=== PATIENT | female | born 1985 | race Caucasian/White ===

== ENCOUNTER → 2016-10-16 | Outpatient (CLI) | payer OTHER ==
[~2016-10-16] MED LIST: BCPILLS PO; MELA1TAB9 PO; SERT25TA PO
[2016-10-20 03:05] LABS: CHLAMYDIA TRACH RNA*** NOT DETECTED (NOT DETECTED); GC (NEIS GONORRHOEAE)RNA** NOT DETECTED (NOT DETECTED)
== END | disposition home or self-care (01) ==
LOC: C.LABSPEC 12:00
PROVIDERS: ATTEND Obstetrics & Gynecology
DX: L29.8 Other pruritus (principal); N89.8 Other specified noninflammatory disorders of vagina

== ENCOUNTER → 2017-02-26 | Outpatient (CLI) | payer OTHER ==
[2017-02-26 13:15] LABS: BASO % 0.1 %; BASO ABS # 0.01 K/uL (0-0.2); COMPLETE YES; EOS % 0.5 %; HEMATOCRIT 42.1 % (37-47); IG% 0.4 %; LYMPH % 28.5 %; MEAN CELL VOLUME 86.6 fL (80-100); MEAN CORPUSCULAR HGB CONC 34.7 g/dl (32-36); MEAN PLATELET VOLUME 10.8 fL (7.4-10.4); MONO % 4.9 %; NEUT % 65.6 %; PLATELET COUNT 213 K/uL (130-400); RED BLOOD COUNT 4.86 M/uL (4.2-5.4); WHITE BLOOD COUNT 14.38 K/uL (4.8-10.8)
[2017-02-26 13:34] LABS: ALT/SGPT 15 U/L (12-78); AST/SGOT 11 U/L (15-37); BLOOD UREA NITROGEN 20 mg/dl (7-18); BUN/CREATININE RATIO 24.2 (10-20); CALCIUM 8.5 mg/dl (8.5-10.1); CARBON DIOXIDE 24 mmol/L (21-32); CHLORIDE 108 mmol/L (98-107); CREATININE 0.81 mg/dl (0.60-1.20); GLUCOSE 108 mg/dl (70-99); POTASSIUM 3.5 mmol/L (3.5-5.1); SODIUM 140 mmol/L (136-145)
[2017-02-26 13:45] LABS: ALKALINE PHOSPHATASE 106 U/L (45-117); THYROID STIMULATING HORMONE 0.619 uIu/ml (0.300-4.500)
== END | disposition home or self-care (01) ==
LOC: C.LAB 12:15
PROVIDERS: ATTEND Family Medicine
DX: R61 Generalized hyperhidrosis (principal)

== ENCOUNTER → 2017-04-02 | Outpatient (CLI) | payer OTHER ==
[2017-04-02 15:44] LABS: BASO % 0.2 %; BASO ABS # 0.02 K/uL (0-0.2); COMPLETE YES; EOS % 0.8 %; HEMATOCRIT 40.1 % (37-47); IG% 0.3 %; LYMPH % 31.1 %; MEAN CELL VOLUME 85.3 fL (80-100); MEAN CORPUSCULAR HEMOGLOBIN 28.7 pg (25-34); MEAN CORPUSCULAR HGB CONC 33.7 g/dl (32-36); MEAN PLATELET VOLUME 10.1 fL (7.4-10.4); MONO % 7.2 %; NEUT % 60.4 %; PLATELET COUNT 218 K/uL (130-400); WHITE BLOOD COUNT 12.87 K/uL (4.8-10.8)
== END | disposition home or self-care (01) ==
LOC: C.LAB 15:32
PROVIDERS: ATTEND Family Medicine
DX: D72.829 Elevated white blood cell count, unspecified (principal); R61 Generalized hyperhidrosis

== ENCOUNTER 2017-05-12 10:53 | Emergency (ER) | payer OTHER ==
[~2017-05-12] VITALS: Ht 154.9 cm; Wt 51.3 kg
[2017-05-12 10:55] VITALS: TEMP 36.7; O2SAT 95; Ht 154.9 cm; Wt 51.3 kg
[2017-05-12 12:04] VITALS: BP 105/70; PULSE 100
--- NOTE | 2017-05-12 16:08 | EMERGENCY ROOM VISIT NOTE ---
History First contact with patient: 11:36 Chief Complaint: NEEDLE STICK Stated Complaint: NEEDLE STICK History of Present Illness The patient is a 32 year old female who presents to the Emergency Room with complaints of a needle stick to her left fifth finger. 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 The patient washed the wound, expressed blood and used alcohol to clean the wound. Source patient is Asmitaaaron Banerjee, with attending physician a Patricia oncologist. Employee Health has already been contacted regarding this injury, and has initiated source patient testing. The patient herself has undergone previous hepatitis B immunization series. Her tetanus immunization is also up-to-date. She denies any pain. The patient is [id number]. 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 (3) Ovarian cyst (4) Pneumonia Surgical Problems: (1) H/O dilation and curettage (2) H/O wisdom tooth extraction Family History FH: HTN (hypertension) FH: cancer FH: diabetes mellitus FH: heart disease FH: lung disease Social History Smoking Status: Current Every Day Smoker Alcohol Use: occasionally Drug Use: none Marital Status: Housing Status: lives with significant other Occupation Status: employed Current/Historical Medications Scheduled Control Pills ( Control Pills), 1 TAB PO HS Sertraline (Zoloft), 25 MG PO Q2D Scheduled PRN Melatonin-Pyridoxine (Melatonin), 3 MG PO HS PRN for Sleep Physical Exam Vital Signs Date Time Temp Pulse Resp B/P (MAP) Pulse Ox O2 Delivery O2 Flow Rate FiO2 05/12/17 12:04 100 17 105/70 Room Air 05/12/17 10:55 36.7 109 20 104/60 95 Pain Rating (0-10): 0 Physical Exam CONSTITUTIONAL: Healthy and well nourished. Alert and oriented X 3 with positive affect. Patient does not appear in any acute distress. HEENT: Normocephalic, atraumatic. Pupils equal, round and reactive. NECK: Full active range of motion without discomfort. MUSCULOSKELETAL: Examination of the left hand shows a small puncture wound over the ulnar DIP joint of the fifth finger. The patient is able to flex and extend the finger without discomfort. No active bleeding, hematoma formation or ecchymosis. Capillary refill is less than 2 seconds. INTEGUMENTARY: No rash or other significant dermatologic conditions noted. NEUROLOGIC: Left fifth fingertip is sensory intact. Medical Decision & Procedures ED Course Patient history and physical exam were performed. Nurse's notes were reviewed. Vital signs were reviewed and normal. I did contact Employee Health who reports that the source patient has already had blood drawn and tests are pending. The patient therefore deferred any HIV postexposure prophylaxis. She did consent to baseline HIV and additional baseline lab work as routinely ordered for blood-borne occupational exposure. She was instructed to watch for any signs of developing infection, otherwise may apply ice and take ibuprofen or Tylenol as needed for pain. She will follow-up with Employee Health for further management. The patient was happy with plan of care, and denied any discomfort at the time of discharge. Medical Decision Medication Reconcilliation Current Medication List: was personally reviewed by me Blood Pressure Screening Patient's blood pressure: Normal blood pressure Impression Primary Impression: Exposure to body fluids by contaminated hypodermic needle stick Additional Impression: Work related injury Departure Information Dispostion Home / Self-Care Condition GOOD Referrals Fatou Quinteros PA-C (PCP) Chris Sanabria, D.O.Int.Med. Forms HOME CARE DOCUMENTATION FORM, IMPORTANT VISIT INFORMATION Patient Instructions My [facility] [place] [employer] Additional Instructions Keep area clean and watch for any signs of infection. Ice as needed for swelling. Ibuprofen or Tylenol as needed for pain. Follow-up with Employee Health for further management. Problem Qualifiers
== END 2017-05-12 12:05 | disposition home or self-care (01) ==
LOC: C.EDB 10:54 → C.EDD 12:05
DX: S61.237A Puncture wound without foreign body of left little finger without damage to nail, initial encounter (principal); W46.1XXA Contact with contaminated hypodermic needle, initial encounter; Y99.0 Civilian activity done for income or pay; Y92.239 Unspecified place in hospital as the place of occurrence of the external cause; Y93.89 Activity, other specified; Z85.42 Personal history of malignant neoplasm of other parts of uterus; Z87.01 Personal history of pneumonia (recurrent); Z82.49 Family history of ischemic heart disease and other diseases of the circulatory system; Z80.9 Family history of malignant neoplasm, unspecified; Z83.3 Family history of diabetes mellitus; F17.210 Nicotine dependence, cigarettes, uncomplicated; Z79.3 Long term (current) use of hormonal contraceptives; Z79.899 Other long term (current) drug therapy

== ENCOUNTER → 2017-06-06 | Outpatient (CLI) | payer OTHER ==
[2017-06-06 11:10] LABS: BASO % 0.2 %; BASO ABS # 0.02 K/uL (0-0.2); COMPLETE YES; EOS % 0.6 %; HEMATOCRIT 38.5 % (37-47); IG% 0.3 %; LYMPH % 26.2 %; LYMPH ABS # 3.07 K/uL (1.2-3.4); MEAN CELL VOLUME 85.6 fL (80-100); MEAN CORPUSCULAR HEMOGLOBIN 30.7 pg (25-34); MEAN CORPUSCULAR HGB CONC 35.8 g/dl (32-36); MEAN PLATELET VOLUME 10.4 fL (7.4-10.4); MONO % 5.7 %; PLATELET COUNT 223 K/uL (130-400); WHITE BLOOD COUNT 11.71 K/uL (4.8-10.8)
[2017-06-06 12:21] LABS: PREG INTERNAL NEGATIVE QC NEG CLEAR BACKGROUND; PREG INTERNAL POSITIVE QC POS CONTROL LINE
== END | disposition home or self-care (01) ==
LOC: C.LAB 10:46
PROVIDERS: ATTEND Physician Assistant Medical
DX: N91.2 Amenorrhea, unspecified (principal); D72.829 Elevated white blood cell count, unspecified

== ENCOUNTER → 2017-06-23 | Outpatient (CLI) | payer OTHER ==
--- NOTE | 2017-06-23 08:21 | DIAGNOSTIC IMAGING REPORT ---
THYROID ULTRASOUND CLINICAL HISTORY: LEUKOCYTOSIS. COMPARISON STUDY: None TECHNIQUE: Sonography of the thyroid gland was performed. FINDINGS: The right thyroid lobe measures 5.1 x 1.4 x 1.7 cm and the left thyroid lobe measures 5.3 x 1.3 x 1.6 cm. Multiple thyroid nodules are present. The majority of these are predominantly cystic and likely reflect colloid cysts. The largest right lobe nodule is within the lower pole, measuring 0.8 x 0.6 x 0.7 cm. This contains multiple small cystic spaces. Note is made of a 2.3 x 1 x 1.6 cm solid hypoechoic nodule within the lower pole of the left thyroid lobe. This contains echogenic foci which could reflect colloid or microcalcifications. IMPRESSION: Multiple thyroid nodules, the largest of which is a 2.3 x 1 x 1.6 cm left lower pole nodule. Ultrasound-guided fine needle aspiration of this nodule is recommended based on size criteria. Electronically signed by: Case Bland M.D. 06/23/2017 8:20 AM Dictated Date/Time: 06/23/2017 8:16 AM
--- NOTE | 2017-06-23 08:24 | DIAGNOSTIC IMAGING REPORT ---
ABDOMEN COMPLETE (US) CLINICAL HISTORY: Leukocytosis. COMPARISON STUDY: CT of the abdomen and pelvis August 28, 2014. FINDINGS: Liver is sonographically normal. There is no biliary ductal dilatation. The gallbladder is normal. There are no gallstones. The pancreatic body is normal. The head and are slightly obscured. The size of the spleen is normal, measuring 9.4 cm in maximal dimension. The right kidney measures 10.6 cm and the left measures 12 cm. There is no hydronephrosis. Renal echogenicity, size and cortical thickness are normal. The caliber of the abdominal aorta is normal. Visualized portions of the IVC are patent. IMPRESSION: 1. No gallstones or biliary ductal dilatation. 2. Normal size spleen. Electronically signed by: Case Bland M.D. 06/23/2017 8:23 AM Dictated Date/Time: 06/23/2017 8:20 AM
== END | disposition home or self-care (01) ==
LOC: C.ULTR 06:55
PROVIDERS: ATTEND Internal Medicine Hematology & Oncology
DX: D72.829 Elevated white blood cell count, unspecified (principal)

== ENCOUNTER → 2017-07-04 | Outpatient (CLI) | payer OTHER | END | disposition home or self-care (01) | LOC: C.PAPS 14:22 | PROVIDERS: ATTEND Physician Assistant | DX: Z12.4 Encounter for screening for malignant neoplasm of cervix (principal) ==

== ENCOUNTER → 2017-07-23 | Outpatient (CLI) | payer OTHER ==
[2017-07-23 14:08] LABS: THYROID STIMULATING HORMONE 0.439 uIu/ml (0.300-4.500)
== END | disposition home or self-care (01) ==
LOC: C.LAB 13:05
PROVIDERS: ATTEND Physician Assistant
DX: E04.2 Nontoxic multinodular goiter (principal)

== ENCOUNTER → 2017-07-30 | Outpatient (CLI) | payer OTHER ==
--- NOTE | 2017-07-30 10:44 | Discharge Instructions ---
Discharge Instructions Procedure Procedure Date: Jul 30, 2017. Reason for visit: Nodule Left Lobe. Discharge Discharge Date: Jul 30, 2017. Discharge Diagnosis: left lobe thyroid nodule Instructions Activity Recommendations: No limitations Return to School/Work: no limitations Recommended Home Diet: No Limitations, Resume Previous Diet Provider Instructions: US guided fine needle aspiration of a left thyroid nodule is performed with 2 passes utilizing 25-gauge needles. A small hematoma was seen superficial to the left lobe and the procedure was discontinued. Specimens are likely not adequate for diagnosis. ACTIVITY RECOMMENDATIONS: * Rest today. * Resume regular activity in one day. MEDICATIONS: * May take Tylenol or Ibuprofen as needed for pain. DIET: * Resume previous diet. SPECIAL CARE INSTRUCTIONS: Call your doctor if: * Temperature above 101 degrees F. * Pain not relieved by pain medicine ordered. * Increased drainage or redness from incision. * Notify your doctor with any questions or concerns. Call your doctor or go to the nearest Emergency Department if you experience: * Increased chest pain or shortness of breath. FOLLOW UP VISIT: Follow-up with Referring Physician as scheduled. Allergies Coded Allergies: Penicillins (Verified Allergy, Severe, HIVES, 05/12/17) Latex (Verified Allergy, Mild, RASH, 05/12/17) Sulfa Drugs (Verified Allergy, Unknown, RASH, 05/12/17) [employer] Recommendations: Call your doctor if: * Temperature above 101 degrees * Pain not relieved by pain medicine ordered * There is increased drainage or redness from any incision * You have any unanswered questions or concerns. Your Doctors Instructions noted above were prepared by provider Trevor Randolph. Patient Signature Section: Patient Instructions Signature Page Nicolette Mcfarland Patient (or Guardian) Signature/Date: I have read and understand the instructions given to me by my caregivers. Caregiver/RN/Doctor Signature/Date: The above-named patient and/or guardian has received patient instructions on this date. + Original Patient Signature Page (only) stays with chart. Please make copy for patient.
--- NOTE | 2017-07-30 11:10 | DIAGNOSTIC IMAGING REPORT ---
ULTRASOUND-GUIDED FINE-NEEDLE ASPIRATION THYROID CLINICAL HISTORY: Left thyroid nodule. COMPARISON STUDY: Thyroid ultrasound dated 06/23/2017. PROCEDURE: The risks, benefits, and alternatives to the procedure were discussed with the patient. Written informed consent was obtained. The patient was placed supine in ultrasound, and the 2.3 x 1.0 x 1.6 cm hypoechoic nodule in the left lower lobe of the thyroid was localized by ultrasound and selected for fine needle aspiration. The left neck was prepped and draped in the usual sterile fashion. The nodule was aspirated under ultrasound guidance with 2 passes utilizing 25-gauge needles. A small hematoma developed superficial to the left thyroid lobe and the procedure was discontinued. Specimens were reviewed by the pathologist and are likely insufficient for diagnosis. The patient left the department in satisfactory condition. IMPRESSION: 1. Attempted fine-needle aspiration of a left thyroid nodule as above. 2. A small hematoma was seen superficial to the left thyroid lobe and the examination was discontinued. 3. Specimens were reviewed by the pathologist and are likely inadequate for diagnosis. Electronically signed by: Trevor Randolph M.D. 07/30/2017 11:08 AM Dictated Date/Time: 07/30/2017 11:06 AM
== END | disposition home or self-care (01) ==
LOC: C.ULTR 09:38
PROVIDERS: ATTEND Physician Assistant
DX: E04.2 Nontoxic multinodular goiter (principal)

== ENCOUNTER → 2017-11-13 | Outpatient (CLI) | payer OTHER ==
--- NOTE | 2017-11-13 10:55 | DIAGNOSTIC IMAGING REPORT ---
ULTRASOUND-GUIDED LEFT THYROID NODULE FINE-NEEDLE ASPIRATION BIOPSY CLINICAL HISTORY: Thyroid nodule. Previous nondiagnostic biopsy. COMPARISON STUDY: 07/30/2017 FINDINGS: The risks of the procedure were explained the patient and informed consent was obtained. The patient was prepped in sterile fashion. The skin was best possible percent lidocaine. Under ultrasound guidance, 2 samples of the patient's dominant left lobe thyroid nodule were performed utilizing a 25-gauge needle. Initial pathologic interpretation reveal satisfactory material. There were no immediate complications. IMPRESSION: Successful ultrasound-guided fine-needle aspiration biopsy of a dominant left lobe thyroid nodule. Electronically signed by: Jairo Cruz M.D. 11/13/2017 10:54 AM Dictated Date/Time: 11/13/2017 10:51 AM
== END | disposition home or self-care (01) ==
LOC: C.ULTR 09:32
PROVIDERS: ATTEND Physician Assistant
DX: E04.2 Nontoxic multinodular goiter (principal)

== ENCOUNTER → 2018-02-25 | Outpatient (CLI) | payer OTHER ==
[2018-02-25 14:54] LABS: BASO % 0.2 %; BASO ABS # 0.02 K/uL (0-0.2); EOS % 0.9 %; EOS ABS # 0.12 K/uL (0-0.5); HEMATOCRIT 39.4 % (37-47); HEMOGLOBIN 14.2 g/dL (12.0-16.0); IG# 0.07 K/uL (0.00-0.02); LYMPH % 28.3 %; LYMPH ABS # 3.68 K/uL (1.2-3.4); MEAN CELL VOLUME 84.5 fL (80-100); MEAN CORPUSCULAR HEMOGLOBIN 30.5 pg (25-34); MEAN PLATELET VOLUME 10.1 fL (7.4-10.4); MONO % 6.3 %; MONO ABS # 0.82 K/uL (0.11-0.59); NEUT % 63.8 %; NEUT ABS # 8.28 K/uL (1.4-6.5); PLATELET COUNT 207 K/uL (130-400); RED CELL DISTRIBUTION WIDTH CV 12.8 % (11.5-14.5); WHITE BLOOD COUNT 12.99 K/uL (4.8-10.8)
== END | disposition home or self-care (01) ==
LOC: C.LAB 14:28
PROVIDERS: ATTEND Nurse Practitioner Adult Health
DX: N80.9 Endometriosis, unspecified (principal); E04.2 Nontoxic multinodular goiter; D72.829 Elevated white blood cell count, unspecified